=== PATIENT | male | born 1970 | race Hispanic/Latino ===

== ENCOUNTER 2017-09-19 15:11 | Outpatient (CLI) | payer BC | END 2017-09-19 15:12 | disposition home or self-care (01) | LOC: BICRAD 15:11 | PROVIDERS: ATTEND Internal Medicine Rheumatology | DX: M17.11 Unilateral primary osteoarthritis, right knee (principal); M17.12 Unilateral primary osteoarthritis, left knee ==

== ENCOUNTER 2021-01-03 15:11 | Outpatient (CLI) | payer BC ==
[2021-01-03 16:44] LABS: #Basophils 0.1 10x3/uL (0.0-0.2); #Eosinphils 0.9 10x3/uL (0.0-0.5); #Monocytes 0.9 10x3/uL (0.0-1.1); #Neutrophils 6.5 10x3/uL (1.5-8.4); %Basophils 0.6 % (0.0-2.0); %Lymphocytes 31.3 % (18.0-47.0); %Monocytes 7.4 % (0.0-10.0); %Neutrophils 53.5 % (40.0-75.0); Hemoglobin 13.7 g/dL (13.5-17.5); Mean Corpuscular HGB CONC 32.4 g/dL (32.0-36.0); Mean Corpuscular Hemoglobin 28.1 pg (27.0-33.0); Mean Corpuscular Volume 86.7 fl (81.2-95.1); Mean Platelet Volume 10.5 fl (7.4-10.4); Platelet Count 204 10x3/uL (150-450); RBC Distribution Width 13.9 % (11.5-14.5); Red Blood Cell (RBC) Count 4.88 10x6/uL (4.32-5.72); White Blood Cell (WBC) Count 12.1 10x3/uL (3.5-10.5)
[2021-01-03 16:47] LABS: Bilirubin Neg (Negative); Blood, Urine Negative (Negative); Clarity Clear (Clear); Glucose, Urine (Dipstick) Normal (Negative); Ketone, Urine Negative (Negative); Leukocyte Negative (Negative); Nitrite Negative (Negative); Protein, Urine (Dipstick) 15 mg/dl (Neg-Trace); Specific Gravity, Urine 1.015 (1.002-1.036); Urobilinogen Normal mg/dL (Less than 2)
[2021-01-03 16:54] LABS: Bacteria/HPF Rare-Few HPF (None Seen); RBC/HPF None Seen HPF (0-3); Squamous Epithelial None Seen HPF (0-3); WBC/HPF 0-3 HPF (0-3)
[2021-01-03 16:57] LABS: Anion Gap 12 mmol/L (10-20); BUN (Urea Nitrogen) 16 mg/dL (8.4-25.7); Calc. Creatinine Clearance 0 mL/min (70-130); Calcium 9.1 mg/dL (7.8-10.44); Carbon Dioxide 25 mmol/L (22-29); Chloride 106 mmol/L (98-107); Glucose 112 mg/dL (70-105); Potassium 3.9 mmol/L (3.5-5.1); Sodium 139 mmol/L (136-145)
[2021-01-03 17:06] LABS: Prothrombin Time 11.3 sec (9.5-12.1)
[2021-01-04 11:48] LABS: SARS-CoV-2 PCR by NAA Not Detected (NotDetected)
== END 2021-01-03 15:12 | disposition home or self-care (01) ==
LOC: LABBT 15:11
PROVIDERS: ATTEND Orthopaedic Surgery
DX: Z01.818 Encounter for other preprocedural examination (principal); M17.0 Bilateral primary osteoarthritis of knee; Z20.822 Contact with and (suspected) exposure to COVID-19
CPT/HCPCS: 80048; 81001; 85025; 85610; 87081; 93005; 93010; U0003; U0005

== ENCOUNTER 2021-01-08 06:57 | Day surgery (SDC) | payer BC ==
[2021-01-08] MEDS ORDERED: Tranexamic Acid 1,000 MG/10 ML VIAL ONE ×2 (07:29→12:19)
[2021-01-08] MEDS ORDERED: Sodium Chloride 0.9% 100 ML ONE (07:29)
[2021-01-08] MEDS ORDERED: Vancomycin 1.5 GRAM/300 ML BAG 1.5 GM in Premix Bag 1 BAG IVPB SCH ×2 (07:45→20:30)
[2021-01-08] MEDS ORDERED: Ondansetron PF 4 MG/2 ML Vial ONE ×2 (08:06→09:27)
[2021-01-08] MEDS ORDERED: Midazolam HCl 2 mg/2 ml Vial ONE (08:44)
[2021-01-08] MEDS ORDERED: Fentanyl 100 MCG/2 ML VIAL ONE ×2 (08:44→09:17)
[2021-01-08] MEDS ORDERED: methylPREDNISolone Acetate 40 mg/ml Vial ONE ×2 (09:11)
[2021-01-08] MEDS ORDERED: Lidocaine 1% (PF) 30 ML VIAL ONE (09:11)
[2021-01-08] MEDS ORDERED: Bupivacaine PF 0.5% 30 ML VIAL ONE (09:11)
[2021-01-08] MEDS ORDERED: Bupivacaine HCl 0.5%/Epinephrine 1:200,000/PF 30 ml Vial ONE (09:27)
[2021-01-08] MEDS ORDERED: Ropivacaine 2% HCl/PF (20 MG/10 ML VIAL) ONE (09:27)
[2021-01-08] MEDS ORDERED: PROPOFOL 200 MG/20 ML VIAL ONE (09:27)
[2021-01-08] MEDS ORDERED: Dexamethasone 20 MG/5 ML VIAL ONE (09:27)
[2021-01-08] MEDS ORDERED: Lidocaine 1% PF 5 ML VIAL ONE (09:27)
[2021-01-08] MEDS ORDERED: Fentanyl 100 MCG/2 ML VIAL SLOW IVP PRN (09:58)
[2021-01-08] MEDS ORDERED: Ropivacaine HCl/PF 250 ML in Premix Bag 1 BAG NERVE BLCK SCH (10:00)
[2021-01-08] MEDS ORDERED: Zolpidem Tartrate 5 MG TAB PO PRN ×2 (10:00→11:22)
[2021-01-08] MEDS ORDERED: Promethazine HCl 25 MG/ML VIAL IM PRN ×3 (10:00→11:22)
[2021-01-08] MEDS ORDERED: Ondansetron PF 4 MG/2 ML Vial IVP PRN ×2 (10:00→11:22)
[2021-01-08] MEDS ORDERED: traMADol HCl 50 MG TAB PO PRN ×2 (10:00)
[2021-01-08] MEDS ORDERED: HYDROcodone/Acetaminophen 10/325 mg Tablet PO PRN (10:00)
[2021-01-08] MEDS ORDERED: Promethazine HCl 25 MG/ML VIAL SLOW IVP PRN (11:14)
[2021-01-08] MEDS ORDERED: Ondansetron HCl/PF 4 MG/2 ML Vial IVP PRN (11:14)
[2021-01-08] MEDS ORDERED: Acetaminophen 325 MG TAB PO PRN (11:22)
[2021-01-08] MEDS ORDERED: diphenhydrAMINE 25 MG CAP PO PRN (11:22)
[2021-01-08] MEDS ORDERED: Tranexamic Acid 1,000 MG in Sodium Chloride 0.9% 100 ML IVPB SCH (11:30)
[2021-01-08] MEDS: Sodium Chloride 0.9% 1,000 ML IV SCH (14:28)
[2021-01-08] MEDS: Ketorolac Tromethamine 30 MG/ML VIAL IVP SCH ×3 (14:56→23:55)
[2021-01-08] MEDS: CEFAZOLIN 2 GM in Premix Bag 1 BAG IVPB SCH ×2 (16:43→23:55)
[2021-01-08] MEDS ORDERED: Vancomycin HCl 1.5 GM in Sodium Chloride 0.9% 250 ML 300 ML IVPB SCH (20:00)
[2021-01-08] MEDS: Aspirin 81 mg Enteric Coated Tablet PO SCH (20:49)
[2021-01-08] MEDS: HYDROcodone/Acetaminophen 10/325 mg Tablet PO PRN (21:04)
[2021-01-09] MEDS: Sodium Chloride 0.9% 1,000 ML IV SCH ×3 (00:29→18:27)
[2021-01-09] MEDS: Ketorolac Tromethamine 30 MG/ML VIAL IVP SCH ×3 (04:57→17:25)
[2021-01-09 05:26] LABS: Mean Corpuscular Hemoglobin 30.1 pg (27.0-31.0); Mean Corpuscular Volume 88.7 fL (78.0-98.0); Platelet Count 178 thou/uL (130-400); Red Blood Cell (RBC) Count 3.98 mill/uL (4.70-6.10); White Blood Cell (WBC) Count 19.7 thou/uL (4.8-10.8)
[2021-01-09] MEDS: Ferrous Gluconate 324 MG TAB PO SCH ×2 (08:55→17:25)
[2021-01-09] MEDS: Multivitamin W/ Minerals 1 TAB PO SCH (08:55)
[2021-01-09] MEDS: Senokot S 8.6-50 MG TAB PO SCH ×2 (08:55→20:54)
[2021-01-09] MEDS: Aspirin 81 mg Enteric Coated Tablet PO SCH ×2 (08:55→20:54)
[2021-01-09] MEDS: HYDROcodone/Acetaminophen 10/325 mg Tablet PO PRN (11:26)
[2021-01-09 13:58] VITALS: BMI 36.6
[2021-01-10] MEDS: Ketorolac Tromethamine 30 MG/ML VIAL IVP SCH ×2 (00:07→04:55)
[2021-01-10] MEDS: HYDROcodone/Acetaminophen 10/325 mg Tablet PO PRN (04:54)
[2021-01-10 05:49] LABS: Hemoglobin 10.4 g/dL (14.0-18.0); Mean Corpuscular HGB CONC 32.7 g/dL (32.0-36.0); Mean Corpuscular Volume 88.6 fL (78.0-98.0); Mean Platelet Volume 8.3 fL (7.4-10.4); Platelet Count 168 thou/uL (130-400); White Blood Cell (WBC) Count 13.9 thou/uL (4.8-10.8)
[2021-01-10] MEDS: Sodium Chloride 0.9% 1,000 ML IV SCH (06:33)
[2021-01-10] MEDS: Aspirin 81 mg Enteric Coated Tablet PO SCH (08:27)
[2021-01-10] MEDS: Multivitamin W/ Minerals 1 TAB PO SCH (08:27)
[2021-01-10] MEDS: Senokot S 8.6-50 MG TAB PO SCH (08:27)
[2021-01-10] MEDS: Ferrous Gluconate 324 MG TAB PO SCH (08:28)
[2021-01-10 12:12] VITALS: BP 148/75; TEMP 98.3
== END 2021-01-10 14:20 | disposition home or self-care (01) ==
LOC: SDC 06:57 → SJJU 11:22 → EDSTATUS 15:00 → SDC 01-10 14:20
PROVIDERS: ATTEND Orthopaedic Surgery
PROC: 8E0YXBZ Computer Assisted Procedure of Lower Extremity (ICD-10-PCS; principal; 2021-01-08)
PROC: 3E0U33Z Introduction of Anti-inflammatory into Joints, Percutaneous Approach (ICD-10-PCS; principal; 2021-01-08)
PROC: 0SRC0J9 Replacement of Right Knee Joint with Synthetic Substitute, Cemented, Open Approach (ICD-10-PCS; principal; 2021-01-08)
DX: M17.0 Bilateral primary osteoarthritis of knee (principal); E66.9 Obesity, unspecified; Z68.36 Body mass index [BMI] 36.0-36.9, adult; Z79.1 Long term (current) use of non-steroidal anti-inflammatories (NSAID)
CPT/HCPCS: 36415; 85027; C1713; C1776; J0690; J1100; J1885; J2001; J2250; J2405; J2550; J2704; J2795; J2920; J3010; J3370; J3490; J7050; S0020

== ENCOUNTER 2022-05-29 15:26 | Outpatient (CLI) | payer BC ==
[2022-05-29 16:23] LABS: #Basophils 0.1 10x3/uL (0.0-0.2); #Monocytes 0.8 10x3/uL (0.0-1.1); #Neutrophils 5.5 10x3/uL (1.5-8.4); %Basophils 0.8 % (0.0-2.0); %Eosinophils 9.5 % (0.0-6.0); %Lymphocytes 30.8 % (18.0-47.0); %Monocytes 7.4 % (0.0-10.0); %Neutrophils 51.2 % (40.0-75.0); Hemoglobin 14.7 g/dL (13.5-17.5); Mean Corpuscular HGB CONC 34.2 g/dL (32.0-36.0); Mean Corpuscular Hemoglobin 29.2 pg (27.0-33.0); Mean Corpuscular Volume 85.3 fl (81.2-95.1); Mean Platelet Volume 10.5 fl (7.4-10.4); Platelet Count 242 10x3/uL (150-450); RBC Distribution Width 13.1 % (11.5-14.5); Red Blood Cell (RBC) Count 5.04 10x6/uL (4.32-5.72); White Blood Cell (WBC) Count 10.8 10x3/uL (3.5-10.5)
[2022-05-29 16:27] LABS: Bilirubin Neg (Negative); Blood, Urine 10 (Negative); Clarity Clear (Clear); Glucose, Urine (Dipstick) Normal (Negative); Ketone, Urine Negative (Negative); Leukocyte Negative (Negative); Nitrite Negative (Negative); Protein, Urine (Dipstick) 15 mg/dl (Neg-Trace); Specific Gravity, Urine 1.015 (1.005-1.030); Urobilinogen Normal mg/dL (Less than 2); pH, Urine 6.5 (5.0-9.0)
[2022-05-29 16:33] LABS: Prothrombin Time 10.6 sec (9.5-12.1)
[2022-05-29 16:40] LABS: Anion Gap 14 mmol/L (10-20); BUN (Urea Nitrogen) 18 mg/dL (8.4-25.7); Calc. Creatinine Clearance 0 mL/min (70-130); Calcium 9.1 mg/dL (7.8-10.44); Carbon Dioxide 25 mmol/L (22-29); Chloride 105 mmol/L (98-107); Estimated GFR 83; Glucose 69 mg/dL (70-105); Potassium 4.2 mmol/L (3.5-5.1); Sodium 140 mmol/L (136-145)
== END 2022-05-29 15:27 | disposition home or self-care (01) ==
LOC: LABBT 15:26
PROVIDERS: ATTEND Orthopaedic Surgery
DX: Z01.818 Encounter for other preprocedural examination (principal); M17.12 Unilateral primary osteoarthritis, left knee
CPT/HCPCS: 71046; 80048; 81003; 85025; 85610; 86850; 86900; 86901; 87081; 93005; 93010

== ENCOUNTER 2023-09-01 18:29 | Inpatient (IN) | payer BC ==
[~2023-09-01 18:29] MED LIST: Iopamidol-370 76% 500 ML MDV (1 ML CHARGE) ONE
[2023-09-01] MEDS ORDERED: Morphine 4 MG/ML VIAL ONE (19:13)
[2023-09-01] MEDS ORDERED: Ondansetron PF 4 MG/2 ML Vial ONE (19:13)
[2023-09-01] MEDS ORDERED: Acetaminophen 500 MG TAB ONE (19:13)
[2023-09-01 19:16] LABS: #Basophils 0.1 thou/uL (0.0-0.2); #Eosinphils 0.4 thou/uL (0.0-0.7); #Monocytes 0.7 thou/uL (0.11-0.59); #Neutrophils 5.6 thou/uL (1.40-6.50); %Basophils 0.6 % (0.0-1.0); %Eosinophils 4.2 % (0.0-10.0); %Lymphocytes 21.1 % (21.0-51.0); %Monocytes 7.7 % (0.0-10.0); Hematocrit 48.3 % (42.0-52.0); Hemoglobin 16.1 g/dL (14.0-18.0); Mean Corpuscular HGB CONC 33.3 g/dL (32.0-36.0); Mean Corpuscular Volume 83.9 fl (78.0-98.0); Mean Platelet Volume 10.1 fL (7.4-10.4); Platelet Count 207 10x3/uL (130-400); RBC Distribution Width 13.4 % (11.5-14.5); Red Blood Cell (RBC) Count 5.76 mill/uL (4.70-6.10); White Blood Cell (WBC) Count 8.5 10x3/uL (4.8-10.8)
[2023-09-01 19:45] LABS: ALT (SGPT) 32 U/L (8-55); AST (SGOT) 31 U/L (5-34); Albumin 4.8 g/dL (3.5-5.0); Alkaline Phosphatase 107 U/L (40-110); Anion Gap 16 mmol/L (10-20); BUN (Urea Nitrogen) 17 mg/dL (8.4-25.7); Calc. Creatinine Clearance 0 mL/min (70-130); Calcium 9.2 mg/dL (7.8-10.44); Carbon Dioxide 19 mmol/L (22-29); Chloride 104 mmol/L (98-107); Estimated GFR 88; Glucose 119 mg/dL (70-105); Lipase 41 U/L (8-78); Potassium 4.1 mmol/L (3.5-5.1); Protein, Total 7.8 g/dL (6.0-8.3); Sodium 135 mmol/L (136-145)
[2023-09-01 19:49] LABS: Troponin I Less than 0.010 ng/mL (< 0.028)
[2023-09-01] MEDS ORDERED: Ondansetron ODT 4 MG TAB SL PRN (21:30)
[2023-09-01] MEDS ORDERED: Acetaminophen 325 MG TAB PO PRN (21:30)
[2023-09-01] MEDS ORDERED: Ondansetron PF 4 MG/2 ML Vial IVP PRN (21:30)
[2023-09-01 22:30] VITALS: BMI 30.9
[2023-09-01] MEDS: Potassium Chloride 20 MEQ in Lactated Ringer's 1,000 ML IV SCH (23:56)
[2023-09-02] MEDS ORDERED: Morphine 4 MG/ML VIAL SLOW IVP PRN (02:27)
[2023-09-02 05:41] LABS: Hematocrit 41.5 % (42.0-52.0); Hemoglobin 13.6 g/dL (14.0-18.0); Manual Diff?? YES; Mean Corpuscular HGB CONC 32.8 g/dL (32.0-36.0); Mean Corpuscular Hemoglobin 28.3 pg (27.0-31.0); Mean Platelet Volume 10.3 fL (7.4-10.4); Platelet Count 192 10x3/uL (130-400); RBC Distribution Width 13.5 % (11.5-14.5); White Blood Cell (WBC) Count 7.1 10x3/uL (4.8-10.8)
[2023-09-02 05:49] LABS: Delete Auto Diff?? YES
[2023-09-02 06:18] LABS: Band 21 % (5-11); CellaVision Operator ID lab.abc; Eosinophils 1 % (0-10); Lymphocytes 12 % (21-51); Monocytes 11 % (0-10); Neutrophil 54 % (42-75); Platelet Adequacy Comment Platelets Normal; RBC Morphology Within Normal Limits; Reactive Lymphocytes 1 % (0-10); Smudge Cells 9.9 %; Total Cell Count 101
[2023-09-02 06:22] LABS: Mean Corpuscular Volume 86.5 fl (78.0-98.0)
[2023-09-02 06:29] LABS: Anion Gap 12 mmol/L (10-20); BUN (Urea Nitrogen) 18 mg/dL (8.4-25.7); Calc. Creatinine Clearance 124 mL/min (70-130); Calcium 8.2 mg/dL (7.8-10.44); Carbon Dioxide 21 mmol/L (22-29); Chloride 106 mmol/L (98-107); Estimated GFR 103; Glucose 109 mg/dL (70-105); Potassium 3.7 mmol/L (3.5-5.1); Sodium 135 mmol/L (136-145)
[2023-09-02] MEDS ORDERED: MD-Gastroview 120 ML BOT ONE (07:47)
[2023-09-02] MEDS ORDERED: FLU VACC QS2023-24(6MOS UP)/PF 60 MCG/0.5 ML SYRINGE IM ONE (09:00)
[2023-09-02] MEDS: Potassium Chloride 20 MEQ in Lactated Ringer's 1,000 ML IV SCH (14:04)
[2023-09-02] MEDS ORDERED: Morphine 2 MG/ML VIAL SLOW IVP PRN (14:30)
[2023-09-02] MEDS: metroNIDAZOLE 500 MG TAB PO SCH ×2 (15:19→19:46)
[2023-09-02] MEDS: Acetaminophen 325 MG TAB PO SCH ×2 (15:19→19:45)
[2023-09-02] MEDS: Cipro 250 MG TAB PO SCH (19:46)
[2023-09-03] MEDS: Acetaminophen 325 MG TAB PO SCH ×2 (01:49→09:23)
[2023-09-03] MEDS: Cipro 250 MG TAB PO SCH (05:19)
[2023-09-03 08:25] VITALS: BP 117/80; TEMP 97.7
[2023-09-03] MEDS: metroNIDAZOLE 500 MG TAB PO SCH (09:17)
== END 2023-09-03 12:22 | disposition home or self-care (01) | DRG 392 ==
LOC: ERS 18:29 → T4-A 21:28 → OBSVTOIN 09-02 15:28
PROVIDERS: ADMIT Student in an Organized Health Care Education/Training Program; ATTEND Student in an Organized Health Care Education/Training Program
DX: K52.9 Noninfective gastroenteritis and colitis, unspecified (principal); K56.609 Unspecified intestinal obstruction, unspecified as to partial versus complete obstruction; Z96.653 Presence of artificial knee joint, bilateral
CPT/HCPCS: 36415; 71045; 74018; 74177; 74250; 80048; 80053; 83605; 83690; 84484; 85025; 87040; 93005; 96361; 96374; 96375; 96376; G0378; J2270; J2405; J3480; J7120; Q9963; Q9967